=== PATIENT | female | born 1985 | race Caucasian/White ===

== ENCOUNTER 2016-06-09 23:17 | Emergency (ER) | payer OTHER ==
[2016-06-10 01:05] LABS: SPECIFIC GRAVITY 1.025 (1.001-1.030); URINE BILIRUBIN NEGATIVE (NEGATIVE); URINE BLOOD 2+ (NEGATIVE); URINE GLUCOSE (UA) NEGATIVE (NEGATIVE); URINE LEUKOCYTE ESTERASE TRACE (NEGATIVE); URINE NITRITE NEGATIVE (NEGATIVE); URINE PROTEIN NEGATIVE (NEGATIVE); URINE UROBILINOGEN 1 mg/dL (0-1 mg/dl)
[2016-06-10 01:08] LABS: HCG,QUALITATIVE URINE POSITIVE
[2016-06-10 01:10] LABS: URINE APPEARANCE SL CLOUDY; URINE COLOR DARK YELLOW
[2016-06-10 01:11] LABS: URINE MUCUS 4+; URINE WBC 0-1 /hpf
[2016-06-10 01:32] LABS: ABSOLUTE NEUTROPHIL COUNT 5.6 K/mm3 (1.8-7.7); BASO % 0.5 % (0.2-1.0); EOS # 0.2 (0.0-0.5); HEMATOCRIT 41.9 % (37.0-47.0); IMM NEUT% 0.4 % (0-1); LYMPH # 2.1 (1.0-4.8); MEAN CELL VOLUME 91.9 fl (81.0-99.0); MEAN CORPUSCULAR HEMOGLOBIN 28.5 pg (27.0-31.0); MEAN PLATELET VOLUME 10.5 fl (7.4-10.4); MONO # 0.5 (0.0-0.8); MONO % 6.2 % (4-12); NEUT % 65.9 % (43-75); PLATELET COUNT 241 K/mm3 (130-400); RED CELL DISTRIBUTION WIDTH 14.2 % (11.5-14.5)
[2016-06-10] MEDS ORDERED: DIPHENHYDRAMINE HCL 50 MG/1 ML VIAL ONE (01:43)
[2016-06-10 02:14] LABS: ALB/GLOB RATIO 1.6 (>1.0); ALBUMIN 3.9 gm/dL (3.5-5.7); CALCIUM 9.1 mg/dL (8.6-10.3)
== END 2016-06-10 04:05 | disposition home or self-care (01) ==
LOC: ED 23:17
DX: O20.9 Hemorrhage in early pregnancy, unspecified (principal); O26.891 Other specified pregnancy related conditions, first trimester; R10.9 Unspecified abdominal pain; Z3A.00 Weeks of gestation of pregnancy not specified
CPT/HCPCS: 83690; 81025; 84702; 85025; 80053; 81001; 99284; 96374; 99283; J1200